=== PATIENT | male | born 1985 | race Caucasian/White ===

== ENCOUNTER 2023-12-19 13:45 | Emergency (ER) | payer MEDICAID ==
[~2023-12-19] VITALS: Ht 185.4 cm; Wt 78.8 kg
[~2023-12-19 13:45] MED LIST: HYDR-4383 PO; HYDR1TAB PO; NO HOME MEDS
[2023-12-19 15:42] LABS: BASOPHILS % (AUTO) 0.3 % (0-1); EOSINOPHILS # (AUTO) 0.1 X10'3 (0-0.9); EOSINOPHILS % (AUTO) 0.8 % (0-6); HEMOGLOBIN 13.5 g/dl (14.0-17.9); LYMPHOCYTES # (AUTO) 2.8 X10'3 (1.1-4.8); LYMPHOCYTES % (AUTO) 17.8 % (21-51); MEAN CORPUSCULAR HEMOGLOBIN 28.3 PG (27.0-31.0); MEAN CORPUSCULAR VOLUME 85.5 FL (78-98); MEAN PLATELET VOLUME 9.5 FL (7.4-10.4); MONOCYTES # (AUTO) 0.7 X10'3 (0-0.9); MONOCYTES % (AUTO) 4.6 % (2-12); NEUTROPHILS # (AUTO) 12.2 X10'3 (1.8-7.7); NEUTROPHILS % (AUTO) 76.5 % (42-75); PLATELET COUNT 268 X10'3 (140-440); RED BLOOD COUNT 4.79 X10'6 (4.70-6.10); RED CELL DISTRIBUTION WIDTH 13.6 % (11.5-14.5); WHITE BLOOD COUNT 15.9 X10'3 (4.5-11.0)
[2023-12-19 15:48] VITALS: TEMP 98.1
[2023-12-19 16:01] LABS: ANION GAP 11 (8-16); BLOOD UREA NITROGEN 16 MG/DL (7-18); BUN/CREATININE RATIO 16.3 (10.0-20.0); CALCIUM 9.3 MG/DL (8.5-10.1); CHLORIDE 104 MMOL/L (99-107); CREATININE 0.98 MG/DL (0.60-1.10); GLUCOSE 93 MG/DL (70-104); POTASSIUM 4.1 MMOL/L (3.5-5.1); PRO BRAIN NATRIURETIC PEPTIDE < 30 PG/ML (0-125); SODIUM 143 MMOL/L (135-145); TOTAL CARBON DIOXIDE 27.7 MMOL/L (24-32); eCRCL 114 ML/MIN; eGFR 86 ML/MIN
[2023-12-19] MEDS ORDERED: CEPH500C2 PO (17:42)
[2023-12-19 18:12] VITALS: BP 105/70; PULSE 70; RESP 16; O2SAT 98
== END 2023-12-19 18:14 | disposition home or self-care (01) ==
LOC: ER 13:46
DX: L03.115 Cellulitis of right lower limb (principal); L03.116 Cellulitis of left lower limb; R04.2 Hemoptysis; Z79.2 Long term (current) use of antibiotics; Z79.899 Other long term (current) drug therapy
CPT/HCPCS: 36415; 71046; 80048; 83605; 83880; 85025; 87040; 87077; 87186; 93005; 99285